=== PATIENT | female | born 1935 | race Hispanic/Latino ===

== ENCOUNTER 2021-06-09 13:20 | Observation (INO) | payer MEDICARE ==
[~2021-06-09] VITALS: Ht 162.6 cm; Wt 43.1 kg
[2021-06-09 13:42] LABS: BASOPHILS % 0.4 % (0.0-1.0); EOSINOPHILS % 0.5 % (0.0-6.0); HEMATOCRIT 44.2 % (34.2-44.1); HEMOGLOBIN 15.3 g/dL (12.0-16.0); LYMPHOCYTES # (AUTO) 1.1 (1.0-3.2); LYMPHOCYTES % 15.5 % (18.0-39.1); MEAN CORPUSCULAR HEMOGLOBIN 33.8 pg (28-32); MEAN CORPUSCULAR HGB CONC 34.6 g/dL (31-35); MEAN CORPUSCULAR VOLUME 97.8 fL (81-99); MONOCYTES # (AUTO) 0.7 (0.2-0.8); MONOCYTES % 9.7 % (4.4-11.3); NEUTROPHILS # (AUTO) 5.4 (2.1-6.9); NEUTROPHILS % 73.6 % (38.7-80.0); PLATELET COUNT 215 x10e3/uL (140-360); RED BLOOD COUNT 4.52 x10e6/uL (3.6-5.1); RED CELL DISTRIBUTION WIDTH 12.4 % (11.7-14.4)
[2021-06-09 13:52] LABS: INR 0.9
[2021-06-09 13:53] LABS: PARTIAL THROMBOPLASTIN TIME 50.5 seconds (23.8-35.5)
[2021-06-09] MEDS ORDERED: LOSARTAN POTAS100 MG PO (13:55)
[2021-06-09] MEDS ORDERED: METFORMIN HCL500 M2 PO (13:56)
[2021-06-09] MEDS ORDERED: ECOTRIN81 MG PO (13:58)
[2021-06-09] MEDS ORDERED: CRESTOR10 MG PO (13:58)
[2021-06-09] MEDS ORDERED: ALENDRONATE SOD70 MG (13:59)
[2021-06-09 14:02] LABS: ALANINE AMINOTRANSFERASE 29 IU/L (0-55); ALBUMIN 3.6 g/dL (3.5-5.0); ALKALINE PHOSPHATASE 95 IU/L (40-150); ANION GAP 17.3 mmol/L (8-16); BLOOD UREA NITROGEN 25 mg/dL (7-26); BUN/CREATININE RATIO 32 (6-25); CARBON DIOXIDE 24 mmol/L (22-29); CHLORIDE 100 mmol/L (98-107); CREATINE KINASE 69 IU/L (29-168); CREATININE, SERUM 0.78 mg/dL (0.57-1.11); EST GLOMERULAR FILTRATION RATE 71 ML/MIN (60-); GLUCOSE 113 mg/dL (74-118); MAGNESIUM 1.8 MG/DL (1.3-2.1); POTASSIUM 4.3 mmol/L (3.5-5.1); SODIUM 137 mmol/L (136-145)
[2021-06-09] MEDS ORDERED: NITROGLYCERIN 0.4 MG SUBL SL PRN (14:30)
[2021-06-09] MEDS ORDERED: ONDANSETRON HCL INJ 2MG/ML 2ML 2 MG/ML VIAL IV PRN (14:30)
[2021-06-09] MEDS ORDERED: Morphine 2mg Syringe 2 MG/ML SYR IV PRN (14:30)
[2021-06-09] MEDS: FAMOTIDINE 20 MG/2 ML VIAL IV SCH (14:45)
[2021-06-09 18:00] VITALS: BP_SYST 109; BP_SYST 122; BP_DIAS 63; BP_DIAS 65
[2021-06-09 19:06] VITALS: BP 133/70
[2021-06-09 20:00] VITALS: BP 131/63
[2021-06-10] VITALS: BP 119/59
[2021-06-10 01:28] LABS: CREATINE KINASE 52 IU/L (29-168)
[2021-06-10 04:00] VITALS: BP 143/74
[2021-06-10] MEDS: FAMOTIDINE 20 MG/2 ML VIAL IV SCH (04:33)
[2021-06-10 05:53] LABS: BASOPHILS % 0.8 % (0.0-1.0); EOSINOPHILS # (AUTO) 0.1 (0.0-0.4); EOSINOPHILS % 1.3 % (0.0-6.0); HEMATOCRIT 33.8 % (34.2-44.1); HEMOGLOBIN 13.3 g/dL (12.0-16.0); LYMPHOCYTES # (AUTO) 1.5 (1.0-3.2); LYMPHOCYTES % 28.2 % (18.0-39.1); MEAN CORPUSCULAR HEMOGLOBIN 39.8 pg (28-32); MEAN CORPUSCULAR HGB CONC 39.3 g/dL (31-35); MONOCYTES # (AUTO) 0.7 (0.2-0.8); MONOCYTES % 12.4 % (4.4-11.3); NEUTROPHILS % 57.1 % (38.7-80.0); PLATELET COUNT 191 x10e3/uL (140-360); RED BLOOD COUNT 3.34 x10e6/uL (3.6-5.1)
[2021-06-10 06:21] LABS: MEAN CORPUSCULAR VOLUME 101.2 fL (81-99)
[2021-06-10 06:30] LABS: ALBUMIN 2.9 g/dL (3.5-5.0); ALBUMIN/GLOBULIN RATIO 0.9 (0.8-2.0); ANION GAP 16.7 mmol/L (8-16); CALCIUM 9.3 mg/dL (8.4-10.2); CHOL/HDL RATIO 2.1 (3.0-3.6); CREATININE, SERUM 0.72 mg/dL (0.57-1.11); POTASSIUM 3.7 mmol/L (3.5-5.1)
[2021-06-10 07:27] LABS: CREATINE KINASE 49 IU/L (29-168)
[2021-06-10 08:51] VITALS: BP 143/74
[2021-06-10] MEDS ORDERED: LOSARTAN POTASSIUM 100 MG TAB PO SCH (09:00)
[2021-06-10] MEDS ORDERED: METFORMIN HCL 500 MG TAB CR PO SCH (09:00)
[2021-06-10] MEDS ORDERED: ASPIRIN 81 MG ENTERIC COATED PO SCH ×2 (09:00)
[2021-06-10 09:39] VITALS: BP 144/71
[2021-06-10 13:01] VITALS: BP 140/71
[2021-06-10] MEDS ORDERED: ONDANSETRON HCL 4 MG ORAL DISINTEGRATING TAB SL PRN (15:30)
[2021-06-10] MEDS ORDERED: SIMVASTATIN 20 MG TAB PO SCH (21:00)
== END 2021-06-10 15:52 | disposition home or self-care (01) ==
LOC: ER 13:30 → ERHOLD 14:33 → MED/SURG2 17:45
PROVIDERS: ADMIT Family Medicine; ATTEND Family Medicine
DX: R07.89 Other chest pain (principal); I10 Essential (primary) hypertension; E11.9 Type 2 diabetes mellitus without complications; Z20.822 Contact with and (suspected) exposure to COVID-19; E78.5 Hyperlipidemia, unspecified; Z79.84 Long term (current) use of oral hypoglycemic drugs; M81.0 Age-related osteoporosis without current pathological fracture; Z79.82 Long term (current) use of aspirin
CPT/HCPCS: 36415 ×2; 71045; 80053 ×2; 80061; 82550 ×2; 82553 ×2; 83735; 83880; 84484 ×2; 85025 ×2; 85610; 85730; 93306; 94799 ×2; 99284; G0378 ×2; U0002